=== PATIENT | male | born 1945 | race Two or more races ===

== ENCOUNTER 2020-02-28 21:40 | Emergency (ER) | payer MEDICARE, MEDICAID ==
[~2020-02-28] VITALS: Ht 172.7 cm; Wt 54.4 kg
--- NOTE | 2020-02-28 21:40 | NUR ---
ED Nurse Note: Pt brought in by [facility] from home c/o lower abd pain and N for several days. Pt c/o of constipation as well. Pt was seen at [facility] 4 times in 4 days for the same reasons. Denies blood in stool or emesis. Pt is A&Ox4, VSS, Pt placed on equipment monitor phototypesetting, ERMD at bedside.
[2020-02-28 21:45] VITALS: BP 131/70
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
[2020-02-28 23:19] LABS: APPEARANCE,URINE CLEAR; BASOPHILS % (AUTO) 0.7 % (0.0-2.0); BILIRUBIN, URINE NEGATIVE (NEGATIVE); EOSINOPHILS % (AUTO) 0.4 % (0.0-3.0); GLUCOSE, URINE (UA) NEGATIVE (NEGATIVE); HEMATOCRIT 42.7 % (42.0-52.0); HEMOGLOBIN 13.7 G/DL (14.2-18.0); KETONES,URINE 1+ (NEGATIVE); LEUKOCYTE ESTERASE ,URINE NEGATIVE (NEGATIVE); LYMPHOCYTES % (AUTO) 10.3 % (20.0-45.0); MEAN CORPUSCULAR VOLUME 98 FL (80-99); NEUTROPHILS % (AUTO) 80.6 % (45.0-75.0); NITRITE,URINE NEGATIVE (NEGATIVE); PH,URINE 6 (4.5-8.0); PLATELET COUNT 221 K/UL (150-450); PROTEIN,URINE 3+ (NEGATIVE); RED BLOOD COUNT 4.37 M/UL (4.70-6.10); RED CELL DISTRIBUTION WIDTH 13.3 % (11.6-14.8); UROBILINOGEN,URINE NORMAL MG/DL (0.0-1.0); WHITE BLOOD COUNT 10.6 K/UL (4.8-10.8)
[2020-02-28 23:21] LABS: COLOR,URINE YELLOW
[2020-02-28 23:30] LABS: ANION GAP 10 mmol/L (5-15); BLOOD UREA NITROGEN 35 mg/dL (7-18); CALCIUM 9.3 MG/DL (8.5-10.1); CARBON DIOXIDE 31 MMOL/L (21-32); CHLORIDE 103 MMOL/L (98-107); CREATININE 1.1 MG/DL (0.55-1.30); POTASSIUM 4.3 MMOL/L (3.5-5.1); SODIUM 143 MMOL/L (136-145)
[2020-02-28 23:35] LABS: ALANINE AMINOTRANSFERASE 181 U/L (12-78); ALBUMIN 3.9 G/DL (3.4-5.0); ALKALINE PHOSPHATASE 70 U/L (46-116); ASPARTATE AMINO TRANSFERASE 352 U/L (15-37); BILIRUBIN,TOTAL 0.8 MG/DL (0.2-1.0)
[2020-02-29] VITALS: BP 127/76
--- NOTE | 2020-02-29 00:03 | NUR ---
ED Nurse Note: caregiver's number Lynn Duran [phone] Krishan Paige [phone]
--- NOTE | 2020-02-29 00:13 | Diagnostic Imaging Report ---
EXAM: CT Lumbar Spine Without Intravenous Contrast CLINICAL HISTORY: PAIN TECHNIQUE: Axial computed tomography images of the lumbar spine without intravenous contrast. CTDI is 4.3 mGy and DLP is 172.9 mGy-cm. One or more of the following dose reduction techniques were used: automated exposure control, adjustment of the mA and/or kV according to patient size, use of iterative reconstruction technique. Coronal and sagittal reconstructions are performed COMPARISON: No relevant prior studies available. FINDINGS: Vertebrae: Osteopenia. Moderate upper lumbar scoliosis convexed to the left. Discs/spinal canal/neural foramina: Moderate degenerative disc disease, causing various degrees of thecal sac compression, neuroforaminal narrowing. Soft tissues: Unremarkable. Vasculature: Moderate amount of atherosclerotic calcifications. Gallbladder and bile ducts: Small cholelithiasis. Other findings: Moderate cardiomegaly. IMPRESSION: Moderate degenerative disc disease Small cholelithiasis.
[2020-02-29] MEDS ORDERED: Morphine Sulfate 2mg/ml Inj(IV/IM USE ONLY) IVP ONE ×2 (01:00→01:45)
[2020-02-29 02:18] VITALS: BP 131/68
[2020-02-29] MEDS ORDERED: GABAPENTIN100 MG ORAL (02:20)
[2020-02-29] MEDS ORDERED: ATORVASTATIN CA20 MG ORAL (02:20)
[2020-02-29] MEDS ORDERED: ASPIR 8181 MG ORAL (02:20)
[2020-02-29] MEDS ORDERED: NORCO 5-325 TA1 EAC1 ORAL (02:20)
[2020-02-29 03:00] VITALS: BP 128/72
--- NOTE | 2020-02-29 03:00 | NUR ---
ER DISCHARGE NOTE: Patient is cleared to be discharged per ERMD, pt is aox4, on room air, with stable vital signs. pt was given dc and prescription instructions, pt was able to verbalize understanding, pt id band removed. pt is able to ambulate with steady gait. pt took all belongings. Pt stable to be transferred to [facility]
== END 2020-02-29 03:00 | disposition short-term general hospital (02) ==
LOC: EDBD 21:40 → EMR 22:14
DX: M54.5 Low back pain (principal); R26.9 Unspecified abnormalities of gait and mobility; M41.9 Scoliosis, unspecified; E86.0 Dehydration; R10.9 Unspecified abdominal pain; K59.00 Constipation, unspecified; Z88.6 Allergy status to analgesic agent
CPT/HCPCS: 36415; 72131; 80053; 81003; 83690; 84484; 85025; 86850; 86870; 86900; 86901; 96374; 96375; 96376; 99285; J2270; J2405; J7040